=== PATIENT | female | born 1965 | race Two or more races ===

== ENCOUNTER 2017-05-27 08:39 | Day surgery (SDC) | payer MEDICAID ==
[2017-05-24 12:38] LABS: ALKALINE PHOSPHATASE 81 U/L (46-116); ALT/SGPT 37 U/L (14-59); AST/SGOT 22 U/L (15-37); CALCIUM 8.6 mg/dL (8.5-10.1); CARBON DIOXIDE 30.6 mmol/L (21-32); CHLORIDE SERUM 104 mmol/L (98-107); CREATININE SERUM 0.7 mg/dL (0.6-1.0); GFR1 > 60 mL/min; GLUCOSE SERUM 91 mg/dL (74-106); POTASSIUM SERUM 3.9 mmol/L (3.5-5.1); SODIUM SERUM 143 mmol/L (136-145); TOTAL PROTEIN, SERUM 7.9 g/dL (6.4-8.2)
[~2017-05-27] VITALS: Ht 160 cm; Wt 57.1 kg
[2017-05-27 09:12] VITALS: BP 144/84
[2017-05-27 16:04] VITALS: BP 113/72
== END 2017-05-27 16:00 | disposition home or self-care (01) ==
LOC: DS 08:39 → OR 12:00 → DS 12:00
PROVIDERS: Surgery
PROC: 07B60ZX Excision of Left Axillary Lymphatic, Open Approach, Diagnostic (ICD-10-PCS; 2017-05-27)
PROC: 0HBU0ZZ Excision of Left Breast, Open Approach (ICD-10-PCS; principal; 2017-05-27 11:00)
DX: C50.312 Malignant neoplasm of lower-inner quadrant of left female breast (principal); Z17.0 Estrogen receptor positive status [ER+]; Z68.22 Body mass index [BMI] 22.0-22.9, adult
CPT/HCPCS: 88329; 88344; 88361; J0690; J1170; J2001; J2175; J2250; J2405; J2704; J3010; J3490; J7120; Q9968